=== PATIENT | female | born 1945 | race African-American/Black ===

== ENCOUNTER 2017-06-27 11:27 | Emergency (ER) | payer MEDICARE, OTHER, MEDICAID ==
[~2017-06-27] VITALS: Ht 162.6 cm; Wt 111.6 kg
[~2017-06-27 11:27] MED LIST: HYDROCHLOROTHIA25 MG ORAL; IBUPROFEN600 MG ORAL; METFORMIN HCL500 M1 ORAL; OMEPRAZOLE10 M1 ORAL; SYNTHROID25 MCG ORAL; TRAMADOL HCL50 MG ORAL
[2017-06-27 11:57] VITALS: BP 147/85
--- NOTE | 2017-06-27 12:38 | Diagnostic Imaging Report ---
Clinical Indication:PAIN Technique: 3 views of the left wrist Comparison: None Findings: No acute fractures. No dislocations. There are degenerative changes of the first carpometacarpal joint. Small cysts are seen within the scaphoid. The bones are osteoporotic. The joint spaces are preserved. There is ulnar minus variance. Impression: No acute bony trauma
[2017-06-27] MEDS ORDERED: TRAMADOL HCL50 MG ORAL (12:55)
[2017-06-27 13:10] VITALS: BP 145/85
--- NOTE | 2017-06-27 13:19 | Emergency Room Report ---
History of Present Illness General Chief Complaint: Pain Source: Patient Present Illness HPI [id number] walk-in with known arthritis c/o left wrist pain, both sides Denies trauma Denies swelling, redness/warmth to area Denies gout Took tylenol at home with some improvement Usually has arthritic pain of knees Allergies: Coded Allergies: ASPIRIN (Verified Allergy, 03/30/13) CODEINE (Verified Allergy, 03/30/13) Patient History Past Medical History: other - Arthritis Past Surgical History: none Pertinent Family History: none Social History: Denies: smoking, alcohol use, drug use Now: No Immunizations: UTD Reviewed Nursing Documentation: PMH: Agreed, PSxH: Agreed Nursing Documentation-PMH Hx Hypertension: Yes Hx Diabetes: Yes Hx Gastrointestinal Problems: Yes - GERD Review of Systems All Other Systems: negative except mentioned in HPI Physical Exam Vital Signs Date Time Temp Pulse Resp B/P (MAP) Pulse Ox O2 Delivery O2 Flow Rate FiO2 06/27/17 11:31 97.5 65 20 147/85 99 Room Air Sp02 EP Interpretation: reviewed, normal General Appearance: normal inspection, well appearing, no apparent distress, alert Head: atraumatic ENT: normal ENT inspection, hearing grossly normal, normal voice Neck: normal inspection, full range of motion, supple, no bony tend Respiratory: normal inspection, lungs clear, normal breath sounds, no respiratory distress, no retraction, no wheezing Cardiovascular #1: regular rate, rhythm, no edema Gastrointestinal: normal inspection, normal bowel sounds, non tender, soft, no guarding, no hernia Genitourinary: no CVA tenderness Musculoskeletal: normal inspection, back normal, normal range of motion, Rishi' s Sign negative, other - left wrist: Mild ttp bilateral sides. No swelling. No warmth. No effusion Neurologic: normal inspection, alert, oriented x3, responsive, riveter pneumatic III-XII nml as tested, motor strength/tone normal, DTRs symmetric, speech normal Psychiatric: normal inspection, judgement/insight normal, mood/affect normal Skin: normal inspection, normal color, no rash Medical Decision Making Diagnostic Impression: Primary Impression: Wrist pain, acute Qualified Codes: M25.532 - Pain in left wrist ER Course No acute, subacute fx on xray Arthritic/degenerative changes noted Advised ICE Rx Ultram for severe pain PMD followup DC home Last Vital Signs Date Time Temp Pulse Resp B/P (MAP) Pulse Ox O2 Delivery O2 Flow Rate FiO2 06/27/17 13:10 97.5 65 20 145/85 99 Room Air Status: improved Disposition: HOME, SELF-CARE Condition: Improved Scripts Tramadol Hcl* (ULTRAM*) 50 Mg Tablet 50 MG ORAL Q8H Y for For Pain for 7 Days, #20 TAB 0 Refills Prov: MICHEL CONTRERAS M.D. 06/27/17 Patient Instructions: Arthritis, [id number] Additional Instructions: - You have arthritis in your wrist - Take ultram for severe pain, otherwise try to manage pain with ice - Follow up with your primary care doctor in 2-3 days MICHEL CONTRERAS M.D. Jun 27, 2017 13:19
== END 2017-06-27 13:12 | disposition home or self-care (01) ==
LOC: EMR 12:00
DX: M25.532 Pain in left wrist (principal); Z88.6 Allergy status to analgesic agent; Z88.5 Allergy status to narcotic agent; M19.90 Unspecified osteoarthritis, unspecified site; I10 Essential (primary) hypertension; K21.9 Gastro-esophageal reflux disease without esophagitis
CPT/HCPCS: 99283